=== PATIENT | female | born 1990 | race African-American/Black ===

== ENCOUNTER → 2019-02-08 | Outpatient (CLI) | payer OTHER ==
--- NOTE | 2019-02-08 17:17 | RAD ---
LUMBAR SPINE 2-3V History: Right leg radiculopathy Comparison: None. Findings: 3 views of the lumbar spine are submitted. Lumbar vertebral body stature and AP alignment are maintained. Intervertebral disc spaces are overall maintained. No acute osseous abnormality is identified by radiograph. There are multiple calcifications in the right pelvis, also single calcification in the left pelvis. Impression: 1. No acute radiographic abnormality is identified of the lumbar spine. 2. There are multiple calcifications in the pelvis greater on the right, may be phleboliths unless clinical suspicion for ureteral calculus. Electronically signed by: Erik Bhakta MD (02/08/2019 5:13 PM) [id number]
== END | disposition home or self-care (01) ==
LOC: PMG 09:10
PROVIDERS: ATTEND Family Medicine
DX: M54.16 Radiculopathy, lumbar region (principal)
CPT/HCPCS: 72100

== ENCOUNTER 2019-05-29 11:15 | Inpatient (IN) | payer OTHER ==
[~2019-05-29] VITALS: Ht 161.3 cm; Wt 72.2 kg
[2019-05-29] VITALS (12 sets, daily range): BP systolic 111–135; BP diastolic 63–78
--- NOTE | 2019-05-29 12:10 | PHYS DOC ---
Adult General Chief Complaint Chief Complaint: ABNORMAL LABS HPI HPI Patient is a 29-year-old female who presents with report of low H&H. Patient indicates that she has been having a lot of fatigue and exertional dyspnea for over a month now. She does admit to heavy vaginal bleeding and states that she n ormally bleeds for about 14 days with very heavy bleeding. She denies any chest pain or shortness of breath.[] Review of Systems Review of Systems Constitutional: Denies fever or chills [] Respiratory: Denies cough or shortness of breath [] Cardiovascular: No additional information not addressed in HPI [] GI: Denies abdominal pain, nausea, vomiting or diarrhea [] Integument: Denies rash or skin lesions [] Neurologic: Denies headache, focal weakness or sensory changes [] All other systems were reviewed and found to be within normal limits, except as documented in this note. Physical Exam Physical Exam Constitutional: Well developed, well nourished, no acute distress, non-toxic appearance. [] HENT: Normocephalic, atraumatic, bilateral external ears normal, oropharynx moist, no oral exudates, nose normal. [] Eyes: PERRLA, EOMI, conjunctiva normal, no discharge. [] Neck: Normal range of motion, no tenderness, supple, no stridor. [] Cardiovascular: Regular rate and rhythm[] Lungs & Thorax: Bilateral breath sounds clear to auscultation [] Abdomen: Bowel sounds normal, soft, no tenderness. [] Skin: Warm, dry, no erythema, no rash. [] Extremities: No tenderness, no cyanosis, no clubbing, ROM intact, no edema. [] Neurologic: Alert and oriented X 3, no focal deficits noted. [] EKG EKG [] Radiology/Procedures Radiology/Procedures [] Course & Med Decision Making Course & Med Decision Making Pertinent Labs and Imaging studies reviewed. (See chart for details) [] Dragon Disclaimer Dragon Disclaimer This electronic medical record was generated, in whole or in part, using a voice recognition dictation system. Departure Departure: Impression: Primary Impression: Symptomatic anemia Disposition: ADMITTED INPATIENT Admitting Physician: Ivette Arita Condition: IMPROVED Referrals: MANFRED BERNAL MD (PCP) NICKY GOODEN Jr. DO May 29, 2019 12:09
--- NOTE | 2019-05-29 14:34 | NUR ---
Pt brought to unit by ems via gurney. Pt belongings checked, head to toe assessed, and vitals taken. Pt given unit routines with verbal understanding received.
--- NOTE | 2019-05-29 14:44 | NUR ---
Blood transfusion started at 1317. Tubing primed with normal saline and then primed with blood. Transfusion started at 50mls/hr, pt monitored closely x15 min. No reaction noted. WCTM
--- NOTE | 2019-05-29 17:12 | HP ---
ADMIT DATE: 05/29/2019 IDENTIFICATION: The patient is a 29-year-old, -Burmese female patient, who apparently came to the Emergency Room as she was referred there by her primary care physician for abnormal lab work. Apparently, she has had lab work done, which showed that her hemoglobin was 3.4, hematocrit was 13, with an MCV of 55, and was transferred to Emergency Room where she was typed and crossed and was transfused 1 unit of packed RBCs and was admitted for further evaluation and treatment. HISTORY OF PRESENT ILLNESS: The patient is apparently known to have fibroids and has been having excessive bleeding. She bleeds for 2 weeks for the last 3 months and has been complaining of shortness of breath and exhausted, have constant headache that continued for almost 3 weeks, and eventually she came to see her primary care physician. She is known to have fibroids and has been trying to contact her business continuity planning director to have surgery. Apparently, the business continuity planning director's office is not returning her calls and was basically seen by her primary care physician, who eventually ordered lab work and was found to have severe microcytic hypochromic anemia. On questioning her further, she said that was told to have anemia when she was 18 years old; however, she has never has had any lab work, and she has never seen any doctor since then. PAST MEDICAL HISTORY: Significant for fibroids, bronchial asthma, and chronic anemia. PAST SURGICAL HISTORY: Significant for tonsillectomy. ALLERGIES: She has no known drug allergies. MEDICATIONS: She is mostly on [id number] medication including ibuprofen. She has been taking 3 tablets 600 mg twice a day for almost a week. She is on Symbicort for her bronchial asthma. FAMILY HISTORY: She has 3 brothers; they are all half-brothers and 1 sister who is also half-sister who apparently because of complication of systemic lupus erythematosus. Her father is still alive, although she does not know him. She saw him only once when she was 11 years old. Mother is alive at age 57, has hypertension. SOCIAL HISTORY: She is single. Does not smoke, drink alcohol, or use any recreational drugs. 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 REVIEW OF SYSTEMS: The patient denied any blurring of vision, cataract, glaucoma, or macular degeneration. Denied any earache, tinnitus, or sensorineural deafness. Denied any nosebleeds, stuffy nose, or postnasal drip. Denied any sore throat, sore tongue, difficulty swallowing. Denied any nausea, vomiting, diarrhea, or constipation. Denied any hematemesis, melena, or hematochezia. Denied any dysuria, frequency, or hematuria. Denied any chest pain, shortness of breath, orthopnea, paroxysmal nocturnal dyspnea. Denied any cough, phlegm, or hemoptysis. She did complain of headache and extreme shortness exhaustion and tiredness as well as persistent headache. PHYSICAL EXAMINATION: GENERAL: On arrival to the Emergency Room, she was pale, but no jaundice, cyanosis, or thyromegaly. No jugular venous distention. No lower limb edema. VITAL SIGNS: Her heart rate was 111, blood pressure was 119/72, temperature was 98.4, respiratory rate was 20, and oxygen saturation was 100% on room air. HEAD, EYES, EARS, NOSE, AND THROAT: Normocephalic, atraumatic. NECK: Supple. HEART: Showed normal first and second heart sounds with no gallop or murmur. CHEST: Clear to auscultation. No crepitation or rhonchi. ABDOMEN: Distended, soft, nontender. NEUROLOGIC: She is awake, alert, responding appropriately. All cranial nerves intact. EXTREMITIES: She moves extremities without difficulty. She ambulates without assistance or assistive devices. LABORATORY DATA: Her lab work showed a white cell count of 8600, hemoglobin 3.4, hematocrit 13, MCV of 55, and platelet count 253,000, with normal manual differential. Her chemistry showed a serum sodium 141, potassium 4, chloride 106, bicarbonate 26, anion gap of 9, BUN 4, creatinine was 0.6 mg/dL, estimated GFR was 142, glucose was 100, calcium was 8.5. Total bilirubin, AST, ALT, alkaline phosphatase were normal. Total protein 7.5, albumin 3.6. Her serum triglycerides were 117, total cholesterol 150, LDL was 79, VLDL was 23, HDL cholesterol of 48 and the ratio was 3. Her TSH was 1.170. ASSESSMENT AND PLAN: Severe microcytic hypochromic anemia, likely due to excessive and heavy periods secondary to fibroids. Plan is to type and cross 3 units of blood and transfuse 1 unit of packed RBCs and reassess her H and H, and if it continues to be 7 or less than 7, transfuse more. I will check her iron, TIBC, and serum ferritin. I will also do a hemoglobin electrophoresis and start her also on Venofer once we have the iron studies. LALO WHEELER MD DR: KYREE/shaylee JOB#: [id number] / [id number]
[2019-05-29 17:21] LABS: HEMOGLOBIN 4.6 g/dL (12.0-15.5)
--- NOTE | 2019-05-29 22:14 | NUR ---
Blood transfusion started @2010. Tubing primed with normal saline & then primed with blood. Transfusion started at 80ml/hr, patient monitored closely for 15 minutes. No reaction noted, transfusion increased to 150ml/hr. Will continue to monitor.
--- NOTE | 2019-05-29 23:30 | NUR ---
Blood transfusion started at 2306. Tubing primed with normal saline & then primed with blood. Transfusion started at 80ml/hr, patient monitored closely for 15 minutes. No reaction noted, transfusion increased to 150ml/hr. Will continue to monitor.
[2019-05-30] VITALS (9 sets, daily range): BP systolic 108–131; BP diastolic 64–79
[2019-05-30 06:48] LABS: HEMATOCRIT 25.4 % (36.0-47.0); HEMOGLOBIN 7.8 g/dL (12.0-15.5); RED BLOOD COUNT 3.58 x10^6/uL (3.50-5.40); RED CELL DISTRIBUTION WIDTH 36.5 % (11.5-14.5); WHITE BLOOD COUNT 8.9 x10^3/uL (4.0-11.0)
[2019-05-30 06:52] LABS: CALCIUM 8.4 mg/dL (8.5-10.1); CREATININE 0.6 mg/dL (0.6-1.0); POTASSIUM 3.8 mmol/L (3.5-5.1)
[2019-05-30] MEDS ORDERED: IRON SUCROSE COMPLEX 200 MG in IV NORMAL SALINE 100ML 100 ML IV ONE (11:30)
[2019-05-30] MEDS ORDERED: Influenza vaccine per PROTOCOL. MC SCH (12:00)
[2019-05-30] MEDS ORDERED: FLU VAX QS 2019-20 (36MOS+)/PF 0.5 ML SYRINGE. VAX IM ONE (12:00)
[2019-05-30 16:45] LABS: HEMATOCRIT 24.8 % (36.0-47.0); HEMOGLOBIN 7.6 g/dL (12.0-15.5)
[2019-05-30] MEDS ORDERED: ACETAMINOPHEN 325 MG TABLET PO PRN (18:00)
--- NOTE | 2019-05-30 23:57 | PN ---
DATE: 05/30/2019 SUBJECTIVE: The patient is sitting slightly propped up in bed, in no apparent distress. She has had no more headache, feeling generally much better. She received 2 units of packed RBCs and her H and H this morning was 7.8 and 25 with normal white cell count and platelets. Her serum iron is very low at 8, TIBC was very high at 477. Iron saturation was only 2 and serum ferritin was 3 ng/mL. PHYSICAL EXAMINATION: GENERAL: When I examined her, she looked pale, no jaundice, cyanosis or thyromegaly. No jugular venous distension. No lower limb edema. VITAL SIGNS: Her heart rate was 85, blood pressure was 124/66, temperature was 98.3, respiratory rate was 18 and oxygen saturation was 100%. HEAD, EYES, EARS, NOSE AND THROAT: Showed normocephalic, atraumatic. NECK: Supple. HEART: Showed normal first and second heart sounds with no gallop, rub or murmur. CHEST: Clear to auscultation. No crepitation or rhonchi. ABDOMEN: Distended, soft, nontender. NEUROLOGIC: She is awake, alert, responding appropriately. All cranial nerves intact. She moves extremities without difficulty. LABORATORY DATA: Her white cell count was 8900, hemoglobin 7.8, hematocrit 25.4, MCV 71 and platelet count 285,000. Serum sodium was 141, potassium 3.8, chloride 106, bicarbonate 25, anion gap of 10, BUN 5, creatinine 0.6, estimated GFR was 142 mL per minute. Her glucose was 89, calcium was 8.4. Serum iron was 8, TIBC was high at 477. Iron saturation was 2% and serum ferritin was 3 ng/mL. ASSESSMENT: Severe microcytic hypochromic anemia, likely due to excessive heavy periods secondary to fibroids. The patient's iron stores are depleted that she has severe iron deficiency anemia. Other medical problems include bronchial asthma. PLAN: My plan is to start her on IV Venofer 200 mg IV once a today and 500 mg tomorrow. We will repeat her H and H this afternoon and again tomorrow morning. If she remains stable, she can be discharged on oral iron and vitamin C with the advice to make an appointment with her whipped topping finisher as soon as possible for surgical treatment of her fibroids causing her dysfunctional uterine bleeding. LAOL WHEELER MD DR: Ky JOB#: [id number] / [id number]
[2019-05-31 05:46] VITALS: BP 113/75
[2019-05-31 06:43] LABS: HEMATOCRIT 25.1 % (36.0-47.0); HEMOGLOBIN 7.7 g/dL (12.0-15.5); RED BLOOD COUNT 3.57 x10^6/uL (3.50-5.40); RED CELL DISTRIBUTION WIDTH 37.3 % (11.5-14.5); WHITE BLOOD COUNT 15.4 x10^3/uL (4.0-11.0)
[2019-05-31 06:54] LABS: CALCIUM 8.6 mg/dL (8.5-10.1); CREATININE 0.6 mg/dL (0.6-1.0)
[2019-05-31] MEDS ORDERED: IRON SUCROSE COMPLEX 500 MG in IV NORMAL SALINE 250ML 250 ML IV ONE (08:15)
[2019-05-31] MEDS ORDERED: FERR325T14 PO (10:37)
[2019-05-31] MEDS ORDERED: ASCO500T3 PO (10:37)
--- NOTE | 2019-05-31 10:45 | DS ---
DATE OF DISCHARGE: 05/29/2019 HOSPITAL COURSE: The patient is a 29-year-old -Togolese female patient, who came in, who was admitted with severe anemia. In fact, her hemoglobin was only 3.4, hematocrit 13, and MCV of 55 and transpired that the patient has multiple uterine fibroids and has severe dysfunctional uterine bleeding. Her periods are very extensive and bleeds almost 2 weeks and every month for the last 3 months. On top of that, she has headache. She has been taking ibuprofen and has been taking it continuously for almost a week. The patient has received 2 units of packed RBCs. Her iron studies were extremely low. Her serum iron was only 8, TIBC was 477. Iron saturation was 2 and serum ferritin was 3 and the patient was given IV Venofer a total of about 700 mg intravenously and will be discharged on oral iron. PHYSICAL EXAMINATION: GENERAL: When I saw her this morning, she looked well and was clearly in no apparent respiratory distress. She was pale, no jaundice, cyanosis or thyromegaly. No jugular venous distention or limb edema. VITAL SIGNS: Her heart rate was 84, blood pressure was 113/75, temperature was 98.8, respiratory rate was 16, and oxygen saturation was 98%. HEAD, EYES, EARS, NOSE AND THROAT: Showed normocephalic, atraumatic. NECK: Supple. HEART: Showed normal first and second heart sounds with no gallop, rub or murmur. CHEST: Clear to auscultation. No crepitation or rhonchi. ABDOMEN: Distended, soft, nontender. No guarding or rigidity. No organomegaly. All hernial orifice intact. Bowel sounds normal. NEUROLOGIC: She was awake, alert, responding appropriately. All cranial nerves intact. EXTREMITIES: She moves extremities without difficulty. She ambulates without assistance or assistive devices. LABORATORY DATA: This morning showed a white cell count was slightly up to 15,400, hemoglobin 7.7, hematocrit 25, MCV 70 and platelet count 432,000. Her chemistry showed a serum sodium 139, potassium 4, chloride 106, bicarbonate 24, anion gap of 9, BUN 3, creatinine 0.6, estimated GFR was 142 mL per minute. Her glucose was 92 and calcium was 8.6. DISCHARGE MEDICATIONS: She was discharged home to continue on ferrous sulfate 325 mg twice a day with meals as well as ascorbic acid 500 mg twice a day. She was advised to avoid all nonsteroidal anti-inflammatory medications and to make an appointment with her thaw shed heater tender as soon as possible for surgical removal of her fibroids. LALO WHEELER MD DR: KYREE/shaylee JOB#: [id number] / [id number]
[2019-05-31 11:06] VITALS: BP_SYST 117
--- NOTE | 2019-05-31 12:41 | NUR ---
NURSING NOTE DISCHARGE PT DISCHARGED TO HOME VIA AMBULATION ACCOMPANIED BY MOM. PT GIVEN WRITTEN AND VERBAL DISCHARGE INSTRUCTIONS. SCRIPT FOR IRON AND VIT C GIVEN TO PT. PT INSTRUCTED TO FOLLOW UP WITH DOOR LINER DALY FOR EVALUATION. NO COMPLICATIONS. MARYCARMEN TRAN.
== END 2019-05-31 12:43 | disposition home or self-care (01) | DRG 761 ==
LOC: ER 11:15 → 1 SOUTH 12:38
PROVIDERS: ADMIT Internal Medicine; ATTEND Internal Medicine
PROC: 30233N1 Transfusion of Nonautologous Red Blood Cells into Peripheral Vein, Percutaneous Approach (ICD-10-PCS; principal; 2019-05-31)
DX: D25.9 Leiomyoma of uterus, unspecified (principal); D50.9 Iron deficiency anemia, unspecified; J45.909 Unspecified asthma, uncomplicated; N92.0 Excessive and frequent menstruation with regular cycle; N93.8 Other specified abnormal uterine and vaginal bleeding; Z82.49 Family history of ischemic heart disease and other diseases of the circulatory system
CPT/HCPCS: 36415; 80048; 82728; 83020; 83540; 83550; 85014; 85018; 85027; 86850; 86900; 86901; 86920; 90471; 90686; J1756; J7050; P9016; 99285-25

== ENCOUNTER → 2019-05-29 | Outpatient (CLI) | payer OTHER ==
[~2019-05-29] MED LIST: ASCO500T3 PO; FERR325T14 PO
[2019-05-29 10:31] LABS: BASO # 0.2 x10^3/uL (0.0-0.2); BASO % 2 % (0-3); EOS # 0.1 x10^3/uL (0.0-0.7); EOS % 2 % (0-3); LYMPH # 3.8 x10^3/uL (1.0-4.8); LYMPH % 44 % (24-48); MEAN CORPUSCULAR HEMOGLOBIN 15 pg (25-35); MEAN CORPUSCULAR HGB CONC 27 g/dL (31-37); MEAN CORPUSCULAR VOLUME 55 fL (79-100); MONO # 0.5 x10^3/uL (0.0-1.1); MONO % 6 % (0-9); NEUT # 4.1 x10^3uL (1.8-7.7); NEUT % 47 % (31-73); PLATELET COUNT 253 x10^3/uL (140-400); RED CELL DISTRIBUTION WIDTH 36.2 % (11.5-14.5); WHITE BLOOD COUNT 8.6 x10^3/uL (4.0-11.0)
[2019-05-29 10:38] LABS: ALBUMIN 3.6 g/dL (3.4-5.0); ALBUMIN/GLOBULIN RATIO 0.9 (1.0-1.7); CALCIUM 8.5 mg/dL (8.5-10.1); CREATININE 0.6 mg/dL (0.6-1.0); TOTAL BILIRUBIN 0.2 mg/dL (0.2-1.0); TOTAL PROTEIN 7.5 g/dL (6.4-8.2)
[2019-05-29 10:46] LABS: HEMOGLOBIN 3.4 g/dL (12.0-15.5)
[2019-05-29 11:44] LABS: % BANDS 2 % (0-9); % EOS 6 % (0-5); % LYMPHS 29 % (24-48); % MONOS 6 % (0-10); % SEGS 57 % (35-66)
[2019-05-29 12:34] LABS: ANISOCYTOSIS MARKED; PLT ESTIMATE ADEQUATE (ADEQUATE)
[2019-05-29 12:36] LABS: HYPOCHROMIA MARKED; MICROCYTOSIS MARKED; POIKILOCYTOSIS PRESENT; POLYCHROMASIA PRESENT
[2019-05-29 12:38] LABS: OVALOCYTES MOD; TEAR DROP CELLS OCC
[2019-05-29 15:49] LABS: THYROID STIM HORMONE (TSH) 1.17 uIU/mL (0.358-3.740)
[2019-05-30 05:37] LABS: HEMOGLOBIN A1C 4.8 % (4.8-5.6)
[2019-05-31 11:52] LABS: RED BLOOD COUNT 2.34 x10^6/uL (3.50-5.40)
== END | disposition home or self-care (01) ==
LOC: PMG 10:04
PROVIDERS: ATTEND Registered Nurse
DX: Z13.6 Encounter for screening for cardiovascular disorders (principal); Z13.29 Encounter for screening for other suspected endocrine disorder; J45.909 Unspecified asthma, uncomplicated; R51 Headache; R42 Dizziness and giddiness; R41.840 Attention and concentration deficit; R35.0 Frequency of micturition; E78.00 Pure hypercholesterolemia, unspecified; Z83.3 Family history of diabetes mellitus
CPT/HCPCS: 36415; 80053; 80061; 83036; 84443; 85007; 85025